=== PATIENT | female | born 1970 | race American Indian/Alaskan Native ===

== ENCOUNTER 2018-06-20 12:52 | Observation (INO) | payer MEDICARE ==
--- NOTE | 2018-06-20 13:11 | Emergency Department Report ---
Blank Doc - Documentation Documentation: This is a 48-year-old female that presents with chest pain and SOB. This initial assessment/diagnostic orders/clinical plan/treatment(s) is/are subject to change based on patient's health status, clinical progression and re- assessment by fellow clinical providers in the ED. Further treatment and workup at subsequent clinical providers discretion. Patient/guardians urged not to elope from the ED as their condition may be serious if not clinically assessed and managed. Initial orders include: 1- Patient sent to MAIN ED for further evaluation and treatment 2- labs 3- CXR 4- EKG
[2018-06-20 13:36] LABS: Basophils % (Auto) 0.4 % (0.0-1.8); Eosinophils # (Auto) 0.1 K/mm3 (0.0-0.4); Eosinophils % (Auto) 0.9 % (0.0-4.3); Hemoglobin 12.3 gm/dl (10.1-14.3); Lymphocytes # (Auto) 3.2 K/mm3 (1.2-5.4); Mean Corpuscular HGB Conc 32 % (30-34); Mean Corpuscular Volume 82 fl (79-97); Monocytes # (Auto) 0.7 K/mm3 (0.0-0.8); Monocytes % (Auto) 6.8 % (0.0-7.3); Platelet Count 288 K/mm3 (140-440); Red Blood Count 4.63 M/mm3 (3.65-5.03); Red Cell Distribution Width 15.4 % (13.2-15.2)
[2018-06-20 13:41] LABS: INR 0.91 (0.87-1.13)
[2018-06-20 13:42] LABS: Partial Thromboplastin Time 25.2 Sec. (24.2-36.6)
[2018-06-20 13:50] LABS: BUN/Creatinine Ratio 17; Blood Urea Nitrogen 15 mg/dL (7-17); Calcium 8.7 mg/dL (8.4-10.2); Hemolysis Index 4
--- NOTE | 2018-06-20 14:14 | XRay Report ---
ROUTINE CHEST, TWO VIEWS: HISTORY: chest pain. The trachea, heart, mediastinal contour, lung peraza and bony thorax are unremarkable. IMPRESSION: Unremarkable chest x-ray.
[2018-06-20] MEDS ORDERED: NITRO-BID 2% TP ONE (16:20)
[2018-06-20] MEDS ORDERED: ZOFRAN IV ONE (16:20)
[2018-06-20] MEDS ORDERED: ASPIRIN PO ONE (16:20)
[2018-06-20] MEDS ORDERED: SUBLIMAZE IV ONE (16:20)
--- NOTE | 2018-06-20 16:28 | Emergency Department Report ---
HPI - General Chief Complaint: Chest Pain Time Seen by Provider: 06/20/18 13:10 - HPI HPI: Room 9 The patient is a 48-year-old female presented with a chief complaint of chest pain. The patient states today she developed intermittent left-sided chest ti ghtness radiating to her left upper extremity and left neck. Patient states spell associated with dizziness, shortness of breath and nausea. Patient denies vomiting. Patient states she's had slight diaphoresis with her chest pain. The patient cannot recall if she's had a stress test in the past but states she's never had a cardiac catheterization Location: Left chest Duration: Intermittent times one day Quality: Sharp Severity: [See above] Modifying factors: [see above] Context: [see above] Mode of transportation: [not driving] ED Past Medical Hx - Past Medical History Previous Medical History?: Yes Hx Hypertension: Yes Hx Diabetes: Yes Hx Asthma: Yes Additional medical history: Sleep apnea, sciatica - Surgical History Past Surgical History?: No - Family History Family history: no significant - Social History Smoking Status: Former Smoker (none 6 years) Substance Use Type: None (denies illicit drug use), Alcohol (occasional) ED Review of Systems ROS: Stated complaint: CHEST PAIN/SOB/DIZZY Other details as noted in HPI Constitutional: diaphoresis Eyes: denies: eye pain ENT: denies: throat pain Respiratory: shortness of breath Cardiovascular: chest pain Endocrine: no symptoms reported Gastrointestinal: nausea. denies: vomiting Genitourinary: denies: dysuria Musculoskeletal: denies: back pain Neurological: denies: headache Physical Exam - Physical Exam Vital Signs: Vital Signs 06/20/18 13:11 Temperature 97.6 F Pulse Rate 91 H Respiratory 24 Rate Blood Pressure 162/57 O2 Sat by Pulse 98 Oximetry Physical Exam: GENERAL: The patient is well-developed well-nourished female sitting on stretcher not appearing to be in acute distress. [] HEENT: Normocephalic. Atraumatic. Extraocular motions are intact. Patient has moist mucous membranes. NECK: Supple. Trachea midline CHEST/LUNGS: Clear to auscultation. There is no respiratory distress noted. HEART/CARDIOVASCULAR: Regular. There is no tachycardia. There is no gallop rub or murmur. ABDOMEN: Abdomen is soft, nontender. Patient has normal bowel sounds. There is no abdominal distention. SKIN: There is no rash. There is no edema. There is no diaphoresis. NEURO: The patient is awake, alert, and oriented. The patient is cooperative. The patient has normal speech MUSCULOSKELETAL:There is no evidence of acute injury. ED Course Vital Signs 06/20/18 13:11 Temperature 97.6 F Pulse Rate 91 H Respiratory 24 Rate Blood Pressure 162/57 O2 Sat by Pulse 98 Oximetry ED Medical Decision Making - Lab Data Result diagrams: 06/20/18 13:19 06/20/18 13:19 Laboratory Tests 06/20/18 06/20/18 06/20/18 13:19 13:19 13:19 WBC 10.4 RBC 4.63 Hgb 12.3 Hct 38.0 MCV 82 MCH 27 L MCHC 32 RDW 15.4 H Plt Count 288 Lymph % (Auto) 31.0 [place] % (Auto) 6.8 Eos % (Auto) 0.9 Baso % (Auto) 0.4 Lymph # 3.2 [place] # 0.7 Eos # 0.1 Baso # 0.0 Seg Neutrophils % 60.9 Seg Neutrophils # 6.3 PT 12.8 INR 0.91 APTT 25.2 Sodium 138 Potassium 3.5 L Chloride 84.5 L Carbon Dioxide 19 L Anion Gap 38 BUN 15 Creatinine 0.9 Estimated GFR > 60 BUN/Creatinine Ratio 17 Glucose 125 H Calcium 8.7 Troponin T < 0.010 - EKG Data -: EKG Interpreted by Me EKG shows normal: sinus rhythm Rate: normal - EKG Data When compared to previous EKG there are: previous EKG unavailable Interpretation: other (no ischemic changes seen) - Radiology Data Radiology results: report reviewed (chest x-ray), image reviewed (chest x-ray) interpreted by me: Chest x-ray-no focal infiltrates, no pneumothorax [facility] [address] [place] [address] XRay Report Signed Patient: SHARYN PENNY MR#: [id number] : 1970 Acct:[id number] Age/Sex: 48 / F ADM Date: 06/20/18 Loc: ED Attending Dr: Ordering Physician: ELPIDIO AUGUSTIN NP Date of Service: 06/20/18 Procedure(s): XR chest routine 2V Accession Number(s): [id number] cc: ELPIDIO AUGUSTIN NP Fluoro Time In Minutes: ROUTINE CHEST, TWO VIEWS: HISTORY: chest pain. The trachea, heart, mediastinal contour, lung peraza and bony thorax are unremarkable. IMPRESSION: Unremarkable chest x-ray. Transcribed By: TTR Dictated By: HARSHAD ROA JR, MD Electronically Authenticated By: HARSHAD ROA JR, MD Signed Date/Time: 06/20/181408 DD/ 08 TD/TT: 06/20/181408 - Differential Diagnosis ACS, pericarditis, GERD Critical care attestation.: If time is entered above; I have spent that time in minutes in the direct care of this critically ill patient, excluding procedure time. ED Disposition Clinical Impression: Chest pain Disposition: OP ADMIT IP TO THIS HOSP Is pt being admited?: Yes Does the pt Need Aspirin: Yes Condition: Fair Instructions: Chest Pain (ED) Referrals: ELLIOT JONES MD [Primary Care Provider] - 3-5 Days Time of Disposition: 16:29 (hospitalist paged (Dr Avila))
--- NOTE | 2018-06-21 01:21 | History and Physical Report ---
History of Present Illness Date of examination: 06/20/18 Date of admission: 06/20/18 16:51 Chief complaint: Chest pain since AM History of present illness: The patient is a 48-year-old female presented with a chief complaint of chest pain. The patient states today she developed intermittent left-sided chest tightness radiating to her left upper extremity and left neck. Patient states spell associated with dizziness, shortness of breath and nausea. Patient denies vomiting. Patient states she's had slight diaphoresis with her chest pain. The patient cannot recall if she's had a stress test in the past but states she's never had a cardiac catheterization Past Medical History Previous Medical History?: Yes Hypertension: Yes Diabetes: Yes Asthma: Yes Sleep apnea, Sciatica Surgical History Past Surgical History?: No Family History Family history: no significant Social History Smoking Status: Former Smoker (none 6 years) Substance Use Type: None (denies illicit drug use), Alcohol (occasional) Review of Systems ROS: Stated complaint: CHEST PAIN/SOB/DIZZY Other details as noted in HPI Constitutional: diaphoresis Eyes: denies: eye pain ENT: denies: throat pain Respiratory: shortness of breath Cardiovascular: chest pain Endocrine: no symptoms reported Gastrointestinal: nausea. denies: vomiting Genitourinary: denies: dysuria Musculoskeletal: denies: back pain Neurological: denies: headache Medications and Allergies Allergies Allergy/AdvReac Type Severity Reaction Status Date / Time No Known Allergies Allergy Unverified 06/20/18 12:55 Exam - Constitutional Vitals: Temp Pulse Resp BP Pulse Ox 98.0 F 80 20 147/73 95 06/20/18 23:21 06/20/18 23:21 06/20/18 23:21 06/20/18 23:21 06/20/18 23:21 General appearance: Present: no acute distress, well-nourished - EENT Eyes: Present: PERRL ENT: hearing intact, clear oral mucosa - Neck Neck: Present: supple, normal ROM - Respiratory Respiratory effort: normal Respiratory: bilateral: CTA - Cardiovascular Heart rate: 78 Rhythm: regular Heart Sounds: Present: S1 & S2. Absent: rub, click - Extremities Extremities: no ischemia, pulses intact, pulses symmetrical, No edema Peripheral Pulses: within normal limits - Abdominal General gastrointestinal: Present: soft, non-tender, non-distended, normal bowel sounds Female genitourinary: Present: normal - Integumentary Integumentary: Present: clear, warm, dry - Musculoskeletal Musculoskeletal: gait normal, strength equal bilaterally - Psychiatric Psychiatric: appropriate mood/affect, intact judgment & insight - Neurologic Neurologic: CNII-XII intact, moves all extremities - Allied Health Allied health notes reviewed: nursing, case management Results - Labs CBC & Chem 7: 06/20/18 13:19 06/20/18 13:19 Labs: Laboratory Last Values WBC 10.4 K/mm3 (4.5-11.0) 06/20/18 13:19 RBC 4.63 M/mm3 (3.65-5.03) 06/20/18 13:19 Hgb 12.3 gm/dl (10.1-14.3) 06/20/18 13:19 Hct 38.0 % (30.3-42.9) 06/20/18 13:19 MCV 82 fl (79-97) 06/20/18 13:19 MCH 27 pg (28-32) L 06/20/18 13:19 MCHC 32 % (30-34) 06/20/18 13:19 RDW 15.4 % (13.2-15.2) H 06/20/18 13:19 Plt Count 288 K/mm3 (140-440) 06/20/18 13:19 Lymph % (Auto) 31.0 % (13.4-35.0) 06/20/18 13:19 [place]son % (Auto) 6.8 % (0.0-7.3) 06/20/18 13:19 Eos % (Auto) 0.9 % (0.0-4.3) 06/20/18 13:19 Baso % (Auto) 0.4 % (0.0-1.8) 06/20/18 13:19 Lymph # 3.2 K/mm3 (1.2-5.4) 06/20/18 13:19 [place]son # 0.7 K/mm3 (0.0-0.8) 06/20/18 13:19 Eos # 0.1 K/mm3 (0.0-0.4) 06/20/18 13:19 Baso # 0.0 K/mm3 (0.0-0.1) 06/20/18 13:19 Seg Neutrophils % 60.9 % (40.0-70.0) 06/20/18 13:19 Seg Neutrophils # 6.3 K/mm3 (1.8-7.7) 06/20/18 13:19 PT 12.8 Sec. (12.2-14.9) 06/20/18 13:19 INR 0.91 (0.87-1.13) 06/20/18 13:19 APTT 25.2 Sec. (24.2-36.6) 06/20/18 13:19 Sodium 138 mmol/L (137-145) 06/20/18 13:19 Potassium 3.5 mmol/L (3.6-5.0) L 06/20/18 13:19 Chloride 84.5 mmol/L (98-107) L 06/20/18 13:19 Carbon Dioxide 19 mmol/L (22-30) L 06/20/18 13:19 Anion Gap 38 mmol/L 06/20/18 13:19 BUN 15 mg/dL (7-17) 06/20/18 13:19 Creatinine 0.9 mg/dL (0.7-1.2) 06/20/18 13:19 Estimated GFR > 60 ml/min 06/20/18 13:19 BUN/Creatinine Ratio 17 % 06/20/18 13:19 Glucose 125 mg/dL (65-100) H 06/20/18 13:19 POC Glucose 142 (70-105) H 06/20/18 20:44 Calcium 8.7 mg/dL (8.4-10.2) 06/20/18 13:19 Troponin T < 0.010 ng/mL (0.00-0.029) 06/20/18 16:20 Short CBC 06/20/18 Range/Units 13:19 WBC 10.4 (4.5-11.0) K/mm3 Hgb 12.3 (10.1-14.3) gm/dl Hct 38.0 (30.3-42.9) % Plt Count 288 (140-440) K/mm3 BMP 06/20/18 13:19 Sodium 138 Potassium 3.5 L Chloride 84.5 L Carbon Dioxide 19 L BUN 15 Creatinine 0.9 Glucose 125 H Calcium 8.7 Cardiac Enzymes 06/20/18 06/20/18 Range/Units 13:19 16:20 Troponin T < 0.010 < 0.010 (0.00-0.029) ng/mL - Imaging and Cardiology EKG: report reviewed (NSR 84/min LVH) CT scan - chest: report reviewed (NAF) Assessment and Plan Advance Directives: Yes (Full code) VTE prophylaxis?: Chemical Plan of care discussed with patient/family: Yes - Patient Problems (1) Chest pain Current Visit: Yes Status: Acute Qualifiers: Chest pain type: unspecified Qualified Code(s): R07.9 - Chest pain, unspecified Plan to address problem: Chest pain r/o MS Protocol Lexiscan Wade Serial Troponins (2) HTN (hypertension) Current Visit: Yes Status: Chronic Qualifiers: Hypertension type: essential hypertension Qualified Code(s): I10 - Essential (primary) hypertension (3) T2DM (type 2 diabetes mellitus) Current Visit: Yes Status: Chronic Plan to address problem: Coverage for now Check A1c No home meds to be reconciled To be initiated on oral hypoglycemics by primary team depending on A1c.Or Lantus (4) Asthma Current Visit: Yes Status: Acute (5) Sleep apnea Current Visit: Yes Status: Chronic Qualifiers: Sleep apnea type: obstructive Qualified Code(s): G47.33 - Obstructive sleep apnea (adult) (pediatric) Plan to address problem: CPAP prn (6) DVT prophylaxis Current Visit: Yes Status: Acute Plan to address problem: On Lovenox and GI prophylaxis
[2018-06-21] MEDS ORDERED: AMBIEN PO PRN (01:22)
[2018-06-21] MEDS ORDERED: ZOFRAN IV PRN (01:22)
[2018-06-21] MEDS ORDERED: SODIUM CHLORIDE FLUSH SYRINGE 10 ML IV PRN (01:22)
[2018-06-21] MEDS ORDERED: TYLENOL PO PRN (01:22)
[2018-06-21] MEDS ORDERED: PERCOCET 5/325 PO PRN (01:22)
[2018-06-21] MEDS ORDERED: DILAUDID IV PRN (01:22)
[2018-06-21 02:41] LABS: Basophils % (Auto) 0.3 % (0.0-1.8); Eosinophils # (Auto) 0.1 K/mm3 (0.0-0.4); Eosinophils % (Auto) 1.2 % (0.0-4.3); Hematocrit 36.6 % (30.3-42.9); Hemoglobin 11.8 gm/dl (10.1-14.3); Lymphocytes # (Auto) 3.5 K/mm3 (1.2-5.4); Lymphocytes % (Auto) 34.8 % (13.4-35.0); Mean Corpuscular HGB Conc 32 % (30-34); Mean Corpuscular Volume 83 fl (79-97); Monocytes # (Auto) 0.8 K/mm3 (0.0-0.8); Monocytes % (Auto) 8.2 % (0.0-7.3); Platelet Count 288 K/mm3 (140-440); Red Blood Count 4.41 M/mm3 (3.65-5.03); Red Cell Distribution Width 15.3 % (13.2-15.2)
[2018-06-21 03:30] LABS: Alanine Aminotransferase 15 units/L (7-56); Albumin 3.3 g/dL (3.9-5); BUN/Creatinine Ratio 16; Blood Urea Nitrogen 14 mg/dL (7-17); Calcium 8.7 mg/dL (8.4-10.2); Hemolysis Index 6
[2018-06-21] MEDS: HumaLOG SUB-Q SCH ×2 (08:43→13:18)
[2018-06-21] MEDS ORDERED: SODIUM CHLORIDE FLUSH SYRINGE 10 ML IV SCH (10:00)
[2018-06-21] MEDS ORDERED: PEPCID PO SCH (10:00)
[2018-06-21] MEDS ORDERED: COZAAR PO SCH (10:00)
[2018-06-21] MEDS ORDERED: LEXISCAN IV ONE ×2 (10:46)
[2018-06-21] MEDS ORDERED: PNEUMOVAX 23 IM ONE (12:00)
[2018-06-21] MEDS ORDERED: AFLURIA QUAD 2018-2019 SYRINGE IM ONE (12:00)
--- NOTE | 2018-06-21 14:11 | Progress Note ---
Assessment and Plan Assessment and plan: Patient is a 48 yo woman with a history of morbid obesity BMI 62.4, type 2 DM, hypertension, COOPER on cpap and asthma who presented with chest pains. (1) Chest pain,atypical Current Visit: Yes Status: Acute Qualifiers: Chest pain type: unspecified Qualified Code(s): R07.9 - Chest pain, unspeci fied Plan to address problem: Lexiscan pending, if negative will discharge Serial Troponins (2) HTN (hypertension) Current Visit: Yes Status: Chronic Qualifiers: Hypertension type: essential hypertension Qualified Code(s): I10 - Essential (primary) hypertension (3) T2DM (type 2 diabetes mellitus) Current Visit: Yes Status: Chronic Plan to address problem: Coverage for now Check A1c No home meds to be reconciled To be initiated on oral hypoglycemics by primary team depending on A1c.Or Lantus (4) Asthma Current Visit: Yes Status: Acute (5) Sleep apnea Current Visit: Yes Status: Chronic Qualifiers: Sleep apnea type: obstructive Qualified Code(s): G47.33 - Obstructive sleep apnea (adult) (pediatric) Plan to address problem: CPAP prn (6) DVT prophylaxis Current Visit: Yes Status: Acute Plan to address problem: On Lovenox and GI prophylaxis History Interval history: Patient was seen and examined. Follow-up on current diagnosis. Overnight uneventful. Patient denies any chest pain, shortness breath, nausea/vomiting or severe headaches. Imaging, nursing note, chart, labs and old chart reviewed. Discussed with patient. Hospitalist Physical - Physical exam Narrative exam: Gen: WDWN, NAD, Awake, Alert, Orientated x 3, bmi 62.4 HEENT: NCAT, EOMI, PERRL, OP Clear Neck: supple, no adenopathy, no thyromegaly, no JVD CVS/Heart: RRR, normal S1S2, pulses present bilaterally Chest/Lungs: CTA B, Symmetrical chest expansion, good air entry bilaterally GI/Abdomen: soft, NTND, good bowel sounds, no guarding or rebound /Bladder: no suprapubic tenderness, no CVA or paraspinal tenderness Extermity/Skin: no c/c/e, no obvious rash MSK: FROM x 4 Neuro: CN 2-12 grossly intact, no new focal deficits Psych: calm - Constitutional Vitals: Temp Pulse Resp BP Pulse Ox 98.0 F 81 13 213/105 94 06/21/18 08:33 06/21/18 08:33 06/21/18 13:29 06/21/18 11:25 06/21/18 08:33 General appearance: Present: no acute distress, well-nourished Results - Labs CBC & Chem 7: 06/21/18 02:07 06/21/18 02:07 Labs: Laboratory Last Values WBC 10.2 K/mm3 (4.5-11.0) 06/21/18 02:07 RBC 4.41 M/mm3 (3.65-5.03) 06/21/18 02:07 Hgb 11.8 gm/dl (10.1-14.3) 06/21/18 02:07 Hct 36.6 % (30.3-42.9) 06/21/18 02:07 MCV 83 fl (79-97) 06/21/18 02:07 MCH 27 pg (28-32) L 06/21/18 02:07 MCHC 32 % (30-34) 06/21/18 02:07 RDW 15.3 % (13.2-15.2) H 06/21/18 02:07 Plt Count 288 K/mm3 (140-440) 06/21/18 02:07 Lymph % (Auto) 34.8 % (13.4-35.0) 06/21/18 02:07 Mcdonald % (Auto) 8.2 % (0.0-7.3) H 06/21/18 02:07 Eos % (Auto) 1.2 % (0.0-4.3) 06/21/18 02:07 Baso % (Auto) 0.3 % (0.0-1.8) 06/21/18 02:07 Lymph # 3.5 K/mm3 (1.2-5.4) 06/21/18 02:07 Mcdonald # 0.8 K/mm3 (0.0-0.8) 06/21/18 02:07 Eos # 0.1 K/mm3 (0.0-0.4) 06/21/18 02:07 Baso # 0.0 K/mm3 (0.0-0.1) 06/21/18 02:07 Seg Neutrophils % 55.5 % (40.0-70.0) 06/21/18 02:07 Seg Neutrophils # 5.6 K/mm3 (1.8-7.7) 06/21/18 02:07 PT 12.8 Sec. (12.2-14.9) 06/20/18 13:19 INR 0.91 (0.87-1.13) 06/20/18 13:19 APTT 25.2 Sec. (24.2-36.6) 06/20/18 13:19 Sodium 142 mmol/L (137-145) 06/21/18 02:07 Potassium 3.7 mmol/L (3.6-5.0) 06/21/18 02:07 Chloride 106.4 mmol/L (98-107) 06/21/18 02:07 Carbon Dioxide 22 mmol/L (22-30) 06/21/18 02:07 Anion Gap 17 mmol/L 06/21/18 02:07 BUN 14 mg/dL (7-17) 06/21/18 02:07 Creatinine 0.9 mg/dL (0.7-1.2) 06/21/18 02:07 Estimated GFR > 60 ml/min 06/21/18 02:07 BUN/Creatinine Ratio 16 % 06/21/18 02:07 Glucose 106 mg/dL (65-100) H 06/21/18 02:07 POC Glucose 128 (70-105) H 06/21/18 13:22 Hemoglobin A1c 6.0 % (4-6) 06/21/18 02:07 Calcium 8.7 mg/dL (8.4-10.2) 06/21/18 02:07 Total Bilirubin < 0.20 mg/dL (0.1-1.2) 06/21/18 02:07 AST 13 units/L (5-40) 06/21/18 02:07 ALT 15 units/L (7-56) 06/21/18 02:07 Alkaline Phosphatase 70 units/L (35-129) 06/21/18 02:07 Troponin T < 0.010 ng/mL (0.00-0.029) 06/21/18 07:09 Total Protein 6.7 g/dL (6.3-8.2) 06/21/18 02:07 Albumin 3.3 g/dL (3.9-5) L 06/21/18 02:07 Albumin/Globulin Ratio 1.0 % 06/21/18 02:07 Active Medications - Current Medications Current Medications: Generic Name Dose Route Start Last Admin Trade Name Freq PRN Reason Stop Dose Admin Acetaminophen 650 mg 06/21/18 01:22 06/21/18 13:29 Tylenol PO 650 mg Q4H PRN Administration Pain MILD(1-3)/Fever >100.5/GRUBER Enoxaparin Sodium 40 mg 06/21/18 22:00 Lovenox SUB-Q QDAY@2200 JACKIE Famotidine 20 mg 06/21/18 10:00 06/21/18 13:12 Pepcid PO 20 mg BID JACKIE Administration Hydromorphone HCl 0.5 mg 06/21/18 01:22 Dilaudid IV Q3H PRN Pain , Severe (7-10) Insulin Human Lispro 0 unit 06/21/18 07:30 06/21/18 13:18 Humalog SUB-Q Not Given ACHS [facility] Protocol Losartan Potassium 50 mg 06/21/18 10:00 06/21/18 13:13 Cozaar PO 50 mg QDAY JACKIE Administration Ondansetron HCl 4 mg 06/21/18 01:22 Zofran IV Q8H PRN Nausea And Vomiting Oxycodone/Acetaminophen 1 tab 06/21/18 01:22 Percocet 5/325 PO Q6H PRN Pain, Moderate (4-6) Sodium Chloride 10 ml 06/21/18 10:00 06/21/18 13:16 Sodium Chloride Flush Syringe 10 Ml IV 10 ml BID JACKIE Administration Sodium Chloride 10 ml 06/21/18 01:22 Sodium Chloride Flush Syringe 10 Ml IV PRN PRN LINE FLUSH Zolpidem Tartrate 5 mg 06/21/18 01:22 Ambien PO QHS PRN Insomnia
--- NOTE | 2018-06-21 14:14 | Discharge Summary ---
Providers - Providers Date of Admission: 06/20/18 16:51 Date of discharge: 06/21/18 Attending physician: KARLA CABRALES Primary care physician: ELLIOT JONES Hospitalization Condition: Stable Hospital course: Patient is a 48 yo woman with a history of morbid obesity BMI 62.4, type 2 DM, hypertension, COOPER on cpap and asthma who presented with chest pains. (1) Chest pain,atypical Current Visit: Yes Status: Acute Qualifiers: Chest pain type: unspecified Qualified Code(s): R07.9 - Chest pain, unspecified Plan to address problem: Lexiscan pending, if negative will discharge Serial Troponins (2) HTN (hypertension) Current Visit: Yes Status: Chronic Qualifiers: Hypertension type: essential hypertension Qualified Code(s): I10 - Essential (primary) hypertension (3) T2DM (type 2 diabetes mellitus) Current Visit: Yes Status: Chronic Plan to address problem: Coverage for now Check A1c No home meds to be reconciled To be initiated on oral hypoglycemics by primary team depending on A1c.Or Lantus (4) Asthma Current Visit: Yes Status: Acute (5) Sleep apnea Current Visit: Yes Status: Chronic Qualifiers: Sleep apnea type: obstructive Qualified Code(s): G47.33 - Obstructive sleep apnea (adult) (pediatric) Plan to address problem: CPAP prn (6) DVT prophylaxis Current Visit: Yes Status: Acute Plan to address problem: On Lovenox and GI prophylaxis Disposition: DC-01 TO HOME OR SELFCARE Time spent for discharge: 36 minutes Core Measure Documentation - Palliative Care Palliative Care/ Comfort Measures: Not Applicable - Core Measures Any of the following diagnoses?: none - VTE Discharge Requirements Deep Vein Thrombosis/Pulmonary Embolism Present on Admission: No Has pt received <5 days of overlap therapy or INR<2.0: No Anticoagulant overlap therapy prescribed at discharge: No Contraindication No Overlap Therapy order at DC: Not Indicated Exam - Physical Exam Narrative exam: Gen: WDWN, NAD, Awake, Alert, Orientated x 3, bmi 62.4 HEENT: NCAT, EOMI, PERRL, OP Clear Neck: supple, no adenopathy, no thyromegaly, no JVD CVS/Heart: RRR, normal S1S2, pulses present bilaterally Chest/Lungs: CTA B, Symmetrical chest expansion, good air entry bilaterally GI/Abdomen: soft, NTND, good bowel sounds, no guarding or rebound /Bladder: no suprapubic tenderness, no CVA or paraspinal tenderness Extermity/Skin: no c/c/e, no obvious rash MSK: FROM x 4 Neuro: CN 2-12 grossly intact, no new focal deficits Psych: calm - Constitutional Vitals: Temp Pulse Resp BP Pulse Ox 98.0 F 81 13 213/105 94 06/21/18 08:33 06/21/18 08:33 06/21/18 13:29 06/21/18 11:25 06/21/18 08:33 Plan Activity: other (no strenous activity ) Diet: low salt, diabetic Special Instructions: record daily BP diary, record blood sugar diary Follow up with: ELLIOT JONES MD [Primary Care Provider] - 3-5 Days Prescriptions: cloNIDine [Catapres] 0.2 mg PO QHS #30 tablet
--- NOTE | 2018-06-21 16:10 | Progress Note ---
Assessment and Plan Assessment and plan: Patient is a 48 yo woman with a history of morbid obesity BMI 62.4, type 2 DM, hypertension, COOPER on cpap and asthma who presented with chest pains. (1) Chest pain,atypical Current Visit: Yes Status: Acute Qualifiers: Chest pain type: unspecified Qualified Code(s): R07.9 - Chest pain, unspeci fied Plan to address problem: Lexiscan pending, if negative will discharge Serial Troponins (2) HTN (hypertension) Current Visit: Yes Status: Chronic Qualifiers: Hypertension type: essential hypertension Qualified Code(s): I10 - Essential (primary) hypertension (3) T2DM (type 2 diabetes mellitus) Current Visit: Yes Status: Chronic Plan to address problem: Coverage for now Check A1c No home meds to be reconciled To be initiated on oral hypoglycemics by primary team depending on A1c.Or Lantus (4) Asthma Current Visit: Yes Status: Acute (5) Sleep apnea Current Visit: Yes Status: Chronic Qualifiers: Sleep apnea type: obstructive Qualified Code(s): G47.33 - Obstructive sleep apnea (adult) (pediatric) Plan to address problem: CPAP prn (6) DVT prophylaxis Current Visit: Yes Status: Acute Plan to address problem: On Lovenox and GI prophylaxis History Interval history: Patient was seen and examined. Follow-up on current diagnosis. Overnight uneventful. Patient denies any chest pain, shortness breath, nausea/vomiting or severe headaches. Imaging, nursing note, chart, labs and old chart reviewed. Discussed with patient. Hospitalist Physical - Physical exam Narrative exam: Gen: WDWN, NAD, Awake, Alert, Orientated x 3, bmi 62.4 HEENT: NCAT, EOMI, PERRL, OP Clear Neck: supple, no adenopathy, no thyromegaly, no JVD CVS/Heart: RRR, normal S1S2, pulses present bilaterally Chest/Lungs: CTA B, Symmetrical chest expansion, good air entry bilaterally GI/Abdomen: soft, NTND, good bowel sounds, no guarding or rebound /Bladder: no suprapubic tenderness, no CVA or paraspinal tenderness Extermity/Skin: no c/c/e, no obvious rash MSK: FROM x 4 Neuro: CN 2-12 grossly intact, no new focal deficits Psych: calm - Constitutional Vitals: Temp Pulse Resp BP Pulse Ox 98.0 F 88 13 213/105 94 06/21/18 08:33 06/21/18 14:00 06/21/18 13:29 06/21/18 11:25 06/21/18 08:33 General appearance: Present: no acute distress, well-nourished Results - Labs CBC & Chem 7: 06/21/18 02:07 06/21/18 02:07 Labs: Laboratory Last Values WBC 10.2 K/mm3 (4.5-11.0) 06/21/18 02:07 RBC 4.41 M/mm3 (3.65-5.03) 06/21/18 02:07 Hgb 11.8 gm/dl (10.1-14.3) 06/21/18 02:07 Hct 36.6 % (30.3-42.9) 06/21/18 02:07 MCV 83 fl (79-97) 06/21/18 02:07 MCH 27 pg (28-32) L 06/21/18 02:07 MCHC 32 % (30-34) 06/21/18 02:07 RDW 15.3 % (13.2-15.2) H 06/21/18 02:07 Plt Count 288 K/mm3 (140-440) 06/21/18 02:07 Lymph % (Auto) 34.8 % (13.4-35.0) 06/21/18 02:07 [place] % (Auto) 8.2 % (0.0-7.3) H 06/21/18 02:07 Eos % (Auto) 1.2 % (0.0-4.3) 06/21/18 02:07 Baso % (Auto) 0.3 % (0.0-1.8) 06/21/18 02:07 Lymph # 3.5 K/mm3 (1.2-5.4) 06/21/18 02:07 [place] # 0.8 K/mm3 (0.0-0.8) 06/21/18 02:07 Eos # 0.1 K/mm3 (0.0-0.4) 06/21/18 02:07 Baso # 0.0 K/mm3 (0.0-0.1) 06/21/18 02:07 Seg Neutrophils % 55.5 % (40.0-70.0) 06/21/18 02:07 Seg Neutrophils # 5.6 K/mm3 (1.8-7.7) 06/21/18 02:07 PT 12.8 Sec. (12.2-14.9) 06/20/18 13:19 INR 0.91 (0.87-1.13) 06/20/18 13:19 APTT 25.2 Sec. (24.2-36.6) 06/20/18 13:19 Sodium 142 mmol/L (137-145) 06/21/18 02:07 Potassium 3.7 mmol/L (3.6-5.0) 06/21/18 02:07 Chloride 106.4 mmol/L (98-107) 06/21/18 02:07 Carbon Dioxide 22 mmol/L (22-30) 06/21/18 02:07 Anion Gap 17 mmol/L 06/21/18 02:07 BUN 14 mg/dL (7-17) 06/21/18 02:07 Creatinine 0.9 mg/dL (0.7-1.2) 06/21/18 02:07 Estimated GFR > 60 ml/min 06/21/18 02:07 BUN/Creatinine Ratio 16 % 06/21/18 02:07 Glucose 106 mg/dL (65-100) H 06/21/18 02:07 POC Glucose 128 (70-105) H 06/21/18 13:22 Hemoglobin A1c 6.0 % (4-6) 06/21/18 02:07 Calcium 8.7 mg/dL (8.4-10.2) 06/21/18 02:07 Total Bilirubin < 0.20 mg/dL (0.1-1.2) 06/21/18 02:07 AST 13 units/L (5-40) 06/21/18 02:07 ALT 15 units/L (7-56) 06/21/18 02:07 Alkaline Phosphatase 70 units/L (35-129) 06/21/18 02:07 Troponin T < 0.010 ng/mL (0.00-0.029) 06/21/18 07:09 Total Protein 6.7 g/dL (6.3-8.2) 06/21/18 02:07 Albumin 3.3 g/dL (3.9-5) L 06/21/18 02:07 Albumin/Globulin Ratio 1.0 % 06/21/18 02:07 Active Medications - Current Medications Current Medications: Generic Name Dose Route Start Last Admin Trade Name Freq PRN Reason Stop Dose Admin Acetaminophen 650 mg 06/21/18 01:22 06/21/18 13:29 Tylenol PO 650 mg Q4H PRN Administration Pain MILD(1-3)/Fever >100.5/GRUBER Enoxaparin Sodium 40 mg 06/21/18 22:00 Lovenox SUB-Q QDAY@2200 JACKIE Famotidine 20 mg 06/21/18 10:00 06/21/18 13:12 Pepcid PO 20 mg BID JACKIE Administration Hydromorphone HCl 0.5 mg 06/21/18 01:22 Dilaudid IV Q3H PRN Pain , Severe (7-10) Insulin Human Lispro 0 unit 06/21/18 07:30 06/21/18 13:18 Humalog SUB-Q Not Given ACHS [facility] Protocol Losartan Potassium 50 mg 06/21/18 10:00 06/21/18 13:13 Cozaar PO 50 mg QDAY JACKIE Administration Ondansetron HCl 4 mg 06/21/18 01:22 Zofran IV Q8H PRN Nausea And Vomiting Oxycodone/Acetaminophen 1 tab 06/21/18 01:22 Percocet 5/325 PO Q6H PRN Pain, Moderate (4-6) Sodium Chloride 10 ml 06/21/18 10:00 06/21/18 13:16 Sodium Chloride Flush Syringe 10 Ml IV 10 ml BID JACKIE Administration Sodium Chloride 10 ml 06/21/18 01:22 Sodium Chloride Flush Syringe 10 Ml IV PRN PRN LINE FLUSH Zolpidem Tartrate 5 mg 06/21/18 01:22 Ambien PO QHS PRN Insomnia
[2018-06-21] MEDS ORDERED: APRESOLINE IV PRN (16:28)
[2018-06-21] MEDS ORDERED: NORMODYNE IV PRN (16:28)
[2018-06-21 16:56] VITALS: BP 168/73
[2018-06-21] MEDS ORDERED: NORVASC PO SCH (17:00)
[2018-06-21] MEDS ORDERED: CATAPRES PO SCH (20:00)
[2018-06-21] MEDS ORDERED: LOVENOX SUB-Q SCH (22:00)
== END 2018-06-21 17:47 | disposition home or self-care (01) ==
LOC: ED 12:52 → 4A 16:51
PROVIDERS: ADMIT Internal Medicine; ATTEND Internal Medicine
DX: R07.89 Other chest pain (principal); I10 Essential (primary) hypertension; E11.9 Type 2 diabetes mellitus without complications; J45.909 Unspecified asthma, uncomplicated; G47.00 Insomnia, unspecified; Z87.891 Personal history of nicotine dependence
CPT/HCPCS: 36415; 71046; 78452; 80048; 80053; 82962; 83036; 84484; 85025; 85610; 85730; 90686; 90732; 93005; 93010; 93017; 96374; 96375; 99285; A9502; G0009; G0378; J2405; J2785; J3010; 90471